=== PATIENT | female | born 1960 | race Caucasian/White ===

== ENCOUNTER 2023-04-18 17:47 | Emergency (ER) | payer OTHER ==
[~2023-04-18] VITALS: Ht 154.9 cm; Wt 99.8 kg
[2023-04-18 17:57] VITALS: BP_SYST 152; PULSE 88; RESP 18; TEMP 98.3; O2SAT 97
--- NOTE | 2023-04-18 18:07 | NUR ---
Pt brought by self, ambulatory, A&Ox4, pt presents to ER with anxiety, pt requesting Ativan since she run out of medications, skin pink and warm, cap refill <3, VSS , respirations even and unlabored.
--- NOTE | 2023-04-18 18:13 | NUR ---
Dr Woods evaluating pt at bedside
[2023-04-18] MEDS ORDERED: LORA-259 PO ×2 (18:35→19:15)
[2023-04-18] MEDS ORDERED: LOM2.5 PO ×2 (18:35→19:15)
--- NOTE | 2023-04-18 19:06 | NUR ---
Patient given written and verbal discharge instructions and verbalizes understanding. ER MD discussed with patient the results and treatment provided. Patient in stable condition. ID arm band removed. Rx of Ativan, Atropine given. Patient educated on pain management and to follow up with PMD. Pain Scale 2/10. Opportunity for questions provided and answered. Medication side effect fact sheet provided.
[2023-04-18 19:07] VITALS: BP_SYST 152; PULSE 88; RESP 18; TEMP 98.3; O2SAT 97
== END 2023-04-18 19:07 | disposition home or self-care (01) ==
LOC: SED 17:47
DX: F41.9 Anxiety disorder, unspecified (principal); R00.2 Palpitations; R19.7 Diarrhea, unspecified; Z79.899 Other long term (current) drug therapy
CPT/HCPCS: 93005; 99283

== ENCOUNTER 2023-04-19 14:09 | Emergency (ER) | payer OTHER ==
[~2023-04-19] VITALS: Ht 154.9 cm; Wt 99.8 kg
[2023-04-19 14:09] VITALS: BP_SYST 141; PULSE 94; RESP 19; TEMP 98; O2SAT 97
[~2023-04-19 14:09] MED LIST: LOM2.5 PO; LORA-259 PO
[2023-04-19 15:45] VITALS: BP_SYST 141; PULSE 94; RESP 19; TEMP 98; O2SAT 97
== END 2023-04-19 15:45 | disposition home or self-care (01) ==
LOC: SED 14:09
DX: Z00.00 Encounter for general adult medical examination without abnormal findings (principal); T42.4X1A Poisoning by benzodiazepines, accidental (unintentional), initial encounter; F41.9 Anxiety disorder, unspecified; Z79.899 Other long term (current) drug therapy; Y92.89 Other specified places as the place of occurrence of the external cause
CPT/HCPCS: 99281

== ENCOUNTER 2023-05-09 13:27 | Emergency (ER) | payer OTHER ==
[~2023-05-09] VITALS: Ht 165.1 cm; Wt 81.6 kg
[2023-05-09 13:43] VITALS: BP_SYST 127; PULSE 87; RESP 20; TEMP 97.9; O2SAT 97
[2023-05-09] MEDS ORDERED: LORazepam 1 MG TABLET PO ONE (14:45)
[2023-05-09] MEDS ORDERED: NACL 0.9% 1,000 ML IV ONE (14:45)
[2023-05-09 15:34] LABS: BASOPHILS % (AUTO) 0.4 % (0.0-2.0); EOSINOPHILS % (AUTO) 0.1 % (0.0-4.0); HEMATOCRIT 43.9 % (36-48); HEMOGLOBIN 14.6 g/dL (12.0-16.0); LYMPHOCYTES # (AUTO) 1.5 K/uL (1.0-5.5); LYMPHOCYTES % (AUTO) 19.9 % (20.5-51.5); MEAN CORPUSCULAR HEMOGLOBIN 30 pg (27-31); MEAN CORPUSCULAR HGB CONC 33 % (32-36); MEAN CORPUSCULAR VOLUME 89 fL (79.0-98.0); MONOCYTES # (AUTO) 0.6 K/uL (0.0-1.0); MONOCYTES % (AUTO) 7.3 % (1.7-9.3); NEUTROPHILS # (AUTO) 5.5 K/uL (1.8-7.7); NEUTROPHILS % (AUTO) 72.3 % (40.0-70.0); PLATELET COUNT (AUTO) 207 K/uL (130-430); RED BLOOD CELL COUNT(AUTO) 4.95 MIL/uL (4.2-6.2); RED CELL DISTRIBUTION WIDTH 13.2 % (9.0-15.0); WHITE BLOOD COUNT (AUTO) 7.6 K/uL (4.8-10.8)
[2023-05-09 15:47] LABS: ANION GAP 17 (5-15); CARBON DIOXIDE 21 mmol/L (23-29); CHLORIDE 100 mmol/L (98-107); CREATININE 0.93 mg/dL (0.55-1.30); GFR AFRICAN AMERICAN 78 mL/min (>90); GFR NON AFRICAN-AMERICAN 64 mL/min (>90); GLUCOSE 78 mg/dL (74-106); POTASSIUM 3.6 mmol/L (3.5-5.1); SODIUM SERUM 138 mmol/L (136-145); UREA NITROGEN, BLOOD 10 mg/dL (8-21)
[2023-05-09 15:53] LABS: ALANINE AMINOTRANSFERASE 9 U/L (12-78); ALBUMIN 3.6 g/dL (3.4-4.8); ASPARTATE AMINOTRANSFERASE 18 U/L (10-37); LIPASE 32 U/L (73-393); TOTAL BILIRUBIN 0.9 mg/dL (0.0-1.0); TOTAL PROTEIN, SERUM 7.5 g/dL (6.4-8.3)
[2023-05-09 19:00] VITALS: BP_SYST 143; PULSE 86; RESP 16; TEMP 97.1; O2SAT 98
== END 2023-05-09 19:00 | disposition home or self-care (01) ==
LOC: SED 13:27
DX: F41.9 Anxiety disorder, unspecified (principal); G47.00 Insomnia, unspecified; R10.13 Epigastric pain; Z79.899 Other long term (current) drug therapy
CPT/HCPCS: 99285; 74177; 96360; 71045; 80053; 83690; 85025; 84484; 36415; 93005; 76376; Q9967; J7030

== ENCOUNTER 2023-05-15 20:25 | Emergency (ER) | payer OTHER ==
[~2023-05-15] VITALS: Ht 154.9 cm; Wt 81.2 kg
[2023-05-15 20:38] VITALS: BP_SYST 140; PULSE 75; RESP 18; TEMP 97.8; O2SAT 98
[2023-05-15 21:34] LABS: BASOPHILS % (AUTO) 0.4 % (0.0-2.0); EOSINOPHILS % (AUTO) 0.3 % (0.0-4.0); HEMOGLOBIN 14.8 g/dL (12.0-16.0); LYMPHOCYTES # (AUTO) 1.8 K/uL (1.0-5.5); LYMPHOCYTES % (AUTO) 22.9 % (20.5-51.5); MEAN CORPUSCULAR HEMOGLOBIN 30 pg (27-31); MEAN CORPUSCULAR HGB CONC 34 % (32-36); MEAN CORPUSCULAR VOLUME 88 fL (79.0-98.0); MONOCYTES # (AUTO) 0.5 K/uL (0.0-1.0); MONOCYTES % (AUTO) 5.9 % (1.7-9.3); NEUTROPHILS # (AUTO) 5.6 K/uL (1.8-7.7); NEUTROPHILS % (AUTO) 70.5 % (40.0-70.0); PLATELET COUNT (AUTO) 215 K/uL (130-430); RED BLOOD CELL COUNT(AUTO) 4.99 MIL/uL (4.2-6.2); RED CELL DISTRIBUTION WIDTH 13.6 % (9.0-15.0); WHITE BLOOD COUNT (AUTO) 7.9 K/uL (4.8-10.8)
[2023-05-15 21:46] LABS: CALCIUM 8.9 mg/dL (8.4-11.0); CREATININE 0.87 mg/dL (0.55-1.30); POTASSIUM 3.4 mmol/L (3.5-5.1)
[2023-05-15 21:50] LABS: ALBUMIN 3.5 g/dL (3.4-4.8); TOTAL BILIRUBIN 0.7 mg/dL (0.0-1.0); TOTAL PROTEIN, SERUM 7.3 g/dL (6.4-8.3)
[2023-05-15] MEDS ORDERED: LORazepam 2 MG/ML VIAL IVP ONE (22:45)
[2023-05-15] MEDS ORDERED: NACL 0.9% 1,000 ML IV ONE (22:45)
[2023-05-16 00:34] VITALS: TEMP 97.8
[2023-05-16 00:36] VITALS: BP_SYST 144; PULSE 89; RESP 19; O2SAT 97
== END 2023-05-16 00:36 | disposition home or self-care (01) ==
LOC: SED 20:25
DX: K52.9 Noninfective gastroenteritis and colitis, unspecified (principal); F41.9 Anxiety disorder, unspecified; Z79.899 Other long term (current) drug therapy
CPT/HCPCS: 99283; 96374; 96361; 80053; 83735; 85025; 36415; J2060; J7030